=== PATIENT | male | born 2000 | race Caucasian/White ===

== ENCOUNTER → 2021-04-03 | Outpatient (CLI) | payer BC ==
[~2021-04-03] MED LIST: ADDERALL5 MG PO; VYVANSE30 MG PO; ZANTAC 150150 MG PO
== END | disposition home or self-care (01) ==
LOC: COVID19 17:56
PROVIDERS: ATTEND Student in an Organized Health Care Education/Training Program
DX: Z11.52 Encounter for screening for COVID-19 (principal); Z20.822 Contact with and (suspected) exposure to COVID-19

== ENCOUNTER 2024-01-12 06:06 | Emergency (ER) | payer BC ==
[~2024-01-12] VITALS: Ht 180.3 cm; Wt 149.7 kg
[~2024-01-12 06:06] MED LIST changes: +ZOFRAN4 MG PO
[2024-01-12] MEDS ORDERED: AMOX-CLAV 875-1 EACH PO (06:30)
[2024-01-12] MEDS ORDERED: CETRAXAL1 EACH OT (06:30)
== END 2024-01-12 06:42 | disposition home or self-care (01) ==
LOC: ED 06:06
DX: H66.91 Otitis media, unspecified, right ear (principal); H60.91 Unspecified otitis externa, right ear; K21.9 Gastro-esophageal reflux disease without esophagitis; F90.9 Attention-deficit hyperactivity disorder, unspecified type; Z98.890 Other specified postprocedural states

== ENCOUNTER 2024-03-05 10:03 | Emergency (ER) | payer BC ==
[~2024-03-05] VITALS: Ht 182.8 cm; Wt 154.2 kg
[~2024-03-05 10:03] MED LIST changes: +AMOX-CLAV 875-1 EACH PO; +CETRAXAL1 EACH OT
[2024-03-05] MEDS ORDERED: CIPROFLOXACIN2.5 M1 OPH (10:43)
== END 2024-03-05 10:46 | disposition home or self-care (01) ==
LOC: ED 10:03
DX: H10.9 Unspecified conjunctivitis (principal); F90.9 Attention-deficit hyperactivity disorder, unspecified type; Z98.890 Other specified postprocedural states